=== PATIENT | male | born 1985 | race Caucasian/White ===

== ENCOUNTER 2016-12-29 10:21 | Emergency (ER) | payer SELFPAY ==
[2016-12-29] MEDS ORDERED: FAMOTIDINE 20 MG TABLET PO ONE (10:37)
[2016-12-29] MEDS ORDERED: PREDNISONE 20 MG TABLET PO ONE (10:37)
--- NOTE | 2016-12-29 11:39 | ER Document Report ---
ED Allergic Reaction - General Chief Complaint: Allergic Reaction Stated Complaint: POSSIBLE ALLERGIC REACTION Time Seen by Provider: 12/29/16 10:31 Mode of Arrival: Ambulatory Information source: Patient - HPI Patient complains to provider of: Facial swelling, allergic reaction Onset: This morning Onset/Duration: Gradual Quality of pain: No pain Identified cause: No Similar symptoms previously: No Recently seen / treated by doctor: No Notes: Patient is a 31-year-old male presenting to the emergency room via EMS for facial swelling, [place] and noted that he had some swelling of his face, and some itchy skin otherwise, states that a pharmacist told him he should seek medical attention for it, patient received 50 mg of p.o. Benadryl via EMS prior to arrival, he denies any difficulty breathing, no airway compromise, no known contact with any irritant, no history of similar symptoms previously - Related Data Allergies/Adverse Reactions: NSAIDS (Non-Steroidal Anti-Inflamma Adverse Reaction (Verified 12/29/16 11:24) Past Medical History - General Information source: Patient - Social History Smoking Status: Current Every Day Smoker Chew tobacco use (# tins/day): No Frequency of alcohol use: Heavy Drug Abuse: None Family History: Reviewed & Not Pertinent GI Medical History: Reports: Hx Ulcer - Gastric Surgical Hx: Negative Review of Systems - Review of Systems Constitutional: No symptoms reported EENT: No symptoms reported Cardiovascular: No symptoms reported Respiratory: No symptoms reported Gastrointestinal: No symptoms reported Genitourinary: No symptoms reported Male Genitourinary: No symptoms reported Musculoskeletal: No symptoms reported Skin: See HPI Hematologic/Lymphatic: No symptoms reported Neurological/Psychological: No symptoms reported -: Yes All other systems reviewed and negative Physical Exam - Vital signs Vitals: Temp Pulse Resp BP Pulse Ox 97.5 F 65 16 126/83 H 96 12/29/16 10:28 12/29/16 10:28 12/29/16 10:28 12/29/16 10:28 12/29/16 10:28 - Notes Notes: - General General appearance: Appears well, Alert In distress: None - HEENT Head: Normocephalic, Atraumatic, mild swelling in the periorbital areas Eyes: Normal Conjunctiva: Normal Extraocular movements intact: Yes Eyelashes: Normal Pupils: PERRL - Respiratory Respiratory status: No respiratory distress - Cardiovascular Rhythm: Regular - Abdominal Inspection: Normal - Back Back: Normal - Extremities General upper extremity: Several areas of skin irritation and excoriation, multiple scars, especially on the left arm circular in motion and resembling old cigarette dukes General lower extremity: Normal inspection - Neurological Neuro grossly intact: Yes Orientation: AAOx4 [place] Coma Scale Eye Opening: Spontaneous [place] Coma Scale Verbal: Oriented [place] Coma Scale Motor: Obeys Commands [place] Coma Scale Total: 15 - Psychological Associated symptoms: Normal affect, Normal mood - Skin Skin Temperature: Warm Skin Moisture: Dry Skin Color: Normal - HEENT Pharynx: Normal. No: Uvular edema, Potential airway comprom. Neck: Normal Course - Re-evaluation Re-evalutation: 12/29/16 11:37 31-year-old male with apparent allergic reaction to unknown substance, given medications including Benadryl via EMS, patient provided with Pepcid and prednisone in the emergency department as well as prescriptions for these medications, advised to follow with her primary care provider or return if symptoms worsen, patient acknowledges understanding and agreement with this plan - Vital Signs Vital signs: Temp Pulse Resp BP Pulse Ox 97.5 F 69 16 124/75 96 12/29/16 10:28 12/29/16 11:55 12/29/16 11:55 12/29/16 11:55 12/29/16 11:55 Discharge - Discharge Clinical Impression: Allergic reaction Qualifiers: Encounter type: initial encounter Qualified Code(s): T78.40XA - Allergy, unspecified, initial encounter Condition: Stable Disposition: HOME, SELF-CARE Instructions: Acute Allergic Reaction ([facility]) Additional Instructions: Follow up with your primary care provider in one to 2 days. Return to the emergency room immediately if symptoms worsen or any additional concerns. Prescriptions: Diphenhydramine HCl [Benadryl 25 Mg Capsule] 25 mg PO Q6 #30 capsule Famotidine [Pepcid 20 mg Tablet] 20 mg PO BID #12 tablet Prednisone 40 mg PO DAILY #8 tablet
[2016-12-29 12:07] VITALS: BP 124/75
== END 2016-12-29 12:02 | disposition home or self-care (01) ==
LOC: ER 10:21
DX: T78.40XA Allergy, unspecified, initial encounter (principal); R22.0 Localized swelling, mass and lump, head; F17.200 Nicotine dependence, unspecified, uncomplicated
CPT/HCPCS: 99283; J7512